=== PATIENT | male | born 1985 | race Caucasian/White ===

== ENCOUNTER 2019-06-10 21:45 | Emergency (ER) | payer BC ==
[~2019-06-10] VITALS: Ht 175.3 cm; Wt 84.8 kg
[2019-06-10] MEDS ORDERED: ESCI20TA PO (21:56)
[2019-06-10] MEDS ORDERED: LISI-603 PO (21:56)
[2019-06-10] MEDS ORDERED: CLON0.5T PO (21:56)
[2019-06-10] MEDS ORDERED: OMEP20TA20 PO (21:56)
--- NOTE | 2019-06-10 22:00 | NUR ---
PATIENT WALKED INTO ER C/O LEFT HAND SWELLING AND PAIN X1 DAY. 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 LEFT HAND WITH SWELLING AND PAIN. CAPILLARY REFILLS LESS THAN 3 SECOND. NO OTHER COMPLAINT NOTED.
[2019-06-10] MEDS: MORPHINE SULFATE 4 MG/1 ML DISP.SYRIN IM ONE (22:42)
[2019-06-10] MEDS ORDERED: MORPHINE SULFATE 4 MG/1 ML DISP.SYRIN ONE (22:43)
--- NOTE | 2019-06-11 00:01 | NUR ---
Patient discharged to home in stable conditon WITH MOTHER TAKING PATIENT. Written and verbal after care instructions given. Patient verbalizes understanding of instructions. WALKED OUT OF ER WITH NO DISTRESS NOTED
[2019-06-11 00:05] VITALS: BP 145/90
== END 2019-06-11 00:05 | disposition home or self-care (01) ==
LOC: ER 21:45
DX: S62.305A Unspecified fracture of fourth metacarpal bone, left hand, initial encounter for closed fracture (principal); F17.200 Nicotine dependence, unspecified, uncomplicated; F12.10 Cannabis abuse, uncomplicated; Z79.899 Other long term (current) drug therapy; W05.1XXA Fall from non-moving nonmotorized scooter, initial encounter; Y93.89 Activity, other specified; Y92.89 Other specified places as the place of occurrence of the external cause; Y99.8 Other external cause status
CPT/HCPCS: 29125; 73130; 96372; 99283; J2270; A4663

== ENCOUNTER 2024-11-07 07:33 | Emergency (ER) | payer BC ==
[~2024-11-07] VITALS: Ht 177.8 cm; Wt 98.9 kg
[~2024-11-07 07:33] MED LIST: CLON0.5T PO; ESCI20TA PO; LISI20TA30 PO; OMEP20TA20 PO
[2024-11-07] MEDS ORDERED: IBUP-1955 PO (08:18)
[2024-11-07 08:40] VITALS: BP 129/84; O2SAT 99
== END 2024-11-07 08:41 | disposition home or self-care (01) ==
LOC: ER 07:45
DX: M79.672 Pain in left foot (principal); F17.200 Nicotine dependence, unspecified, uncomplicated; Z79.899 Other long term (current) drug therapy; Z88.7 Allergy status to serum and vaccine
CPT/HCPCS: 73620; A4606; A4663